=== PATIENT | female | born 1990 | race Caucasian/White ===

== ENCOUNTER 2018-04-03 02:44 | Emergency (ER) | payer MEDICAID ==
[~2018-04-03] VITALS: Ht 154.9 cm; Wt 64.7 kg
[~2018-04-03 02:44] MED LIST: AMOX500T2 PO; ARM1EACH MC; CEPH500C5 PO; CHLO1LIQ2 PO; CLIN300C85 PO; IBUP-1986 PO; IBUPROFEN PO
[2018-04-03 02:52] VITALS: BP 151/103
[2018-04-03] MEDS ORDERED: LIDOcaine 4% (40 mg/ml) topical solution 50ml TP ONE (04:20)
[2018-04-03] MEDS ORDERED: SULF1TAB49 PO (04:38)
[2018-04-03] MEDS ORDERED: CEPH500C5 PO (04:38)
[2018-04-03] MEDS ORDERED: HYDR-3965 PO (04:38)
== END 2018-04-03 05:59 | disposition home or self-care (01) ==
LOC: ER 02:44
DX: L03.011 Cellulitis of right finger (principal); I10 Essential (primary) hypertension; Z79.899 Other long term (current) drug therapy; Z88.2 Allergy status to sulfonamides
CPT/HCPCS: 87070; 87077; 87186; 99283

== ENCOUNTER 2023-04-10 23:06 | Emergency (ER) | payer MEDICAID ==
[~2023-04-10] VITALS: Ht 154.9 cm; Wt 65.9 kg
[~2023-04-10 23:06] MED LIST changes: -CEPH500C5 PO; +CLIN-97 PO; -CLIN300C85 PO
[2023-04-10 23:15] VITALS: BP 150/100; PULSE 98; RESP 16; TEMP 98.3; O2SAT 100
[2023-04-11] MEDS ORDERED: AMOX-117 PO (00:06)
== END 2023-04-11 00:16 | disposition home or self-care (01) ==
LOC: ER 23:06
DX: K12.0 Recurrent oral aphthae (principal); I10 Essential (primary) hypertension; Z79.899 Other long term (current) drug therapy
CPT/HCPCS: 99283

== ENCOUNTER 2024-03-29 20:31 | Emergency (ER) | payer MEDICAID ==
[~2024-03-29] VITALS: Ht 154.9 cm; Wt 72.9 kg
[2024-03-29 21:25] LABS: BASOPHILS # (AUTO) 0.1 X10'3 (0-0.2); BASOPHILS % (AUTO) 0.7 % (0-1); EOSINOPHILS # (AUTO) 0.5 X10'3 (0-0.9); EOSINOPHILS % (AUTO) 5.7 % (0-6); HEMATOCRIT 39.5 % (35.0-45.0); HEMOGLOBIN 13.3 g/dl (12.0-16.0); LYMPHOCYTES # (AUTO) 2.6 X10'3 (1.1-4.8); LYMPHOCYTES % (AUTO) 29.2 % (21-51); MEAN CORPUSCULAR HEMOGLOBIN 29.8 PG (27.0-31.0); MEAN CORPUSCULAR HGB CONC 33.6 g/dL (33.0-36.5); MEAN CORPUSCULAR VOLUME 88.6 FL (78-98); MEAN PLATELET VOLUME 7.9 FL (7.4-10.4); MONOCYTES # (AUTO) 0.8 X10'3 (0-0.9); MONOCYTES % (AUTO) 8.6 % (2-12); NEUTROPHILS # (AUTO) 4.9 X10'3 (1.8-7.7); NEUTROPHILS % (AUTO) 55.8 % (42-75); PLATELET COUNT 267 X10'3 (140-440); RED BLOOD COUNT 4.46 X10'6 (4.20-5.60); RED CELL DISTRIBUTION WIDTH 13.9 % (11.5-14.5); WHITE BLOOD COUNT 8.8 X10'3 (4.5-11.0)
[2024-03-29 21:41] LABS: ALANINE AMINOTRANSFERASE 23 U/L (12-78); ALBUMIN 3.8 G/DL (3.4-5.0); ALBUMIN/GLOBULIN RATIO 1.3 (1.1-1.5); ALKALINE PHOSPHATASE 77 IU/L (46-116); ANION GAP 6 (8-16); ASPARTATE AMINO TRANSFERASE 11 U/L (10-37); BILIRUBIN,TOTAL 0.3 MG/DL (0.1-1.0); BLOOD UREA NITROGEN 17 MG/DL (7-18); BUN/CREATININE RATIO 26.6 (10.0-20.0); CHLORIDE 104 MMOL/L (99-107); CREATININE 0.64 MG/DL (0.40-0.90); GLUCOSE 87 MG/DL (70-104); POTASSIUM 3.8 MMOL/L (3.5-5.1); SODIUM 139 MMOL/L (135-145); TOTAL CARBON DIOXIDE 29.3 MMOL/L (24-32); TOTAL PROTEIN 6.8 G/DL (6.4-8.2); eCRCL 93 ML/MIN; eGFR > 90 ML/MIN
[2024-03-29 21:48] LABS: PRO BRAIN NATRIURETIC PEPTIDE < 30 PG/ML (0-125)
[2024-03-29 22:10] LABS: D-DIMER 0.24 MG/L FEU (0-0.50)
[2024-03-30 00:20] VITALS: BP 155/100; PULSE 89; RESP 16; O2SAT 98
[2024-03-30 00:22] VITALS: TEMP 98
== END 2024-03-30 00:32 | disposition home or self-care (01) ==
LOC: ER 20:32
DX: R60.0 Localized edema (principal); I10 Essential (primary) hypertension
CPT/HCPCS: 36415; 71045; 80053; 83880; 84484; 85025; 85379; 93005; 99285

== ENCOUNTER 2024-06-10 17:24 | Emergency (ER) | payer MEDICAID ==
[~2024-06-10] VITALS: Ht 154.9 cm; Wt 74.0 kg
[2024-06-10 17:25] VITALS: TEMP 98.4
[2024-06-10 17:56] LABS: BASOPHILS # (AUTO) 0.1 X10'3 (0-0.2); BASOPHILS % (AUTO) 0.7 % (0-1); EOSINOPHILS # (AUTO) 0.4 X10'3 (0-0.9); EOSINOPHILS % (AUTO) 4.6 % (0-6); HEMATOCRIT 40.5 % (35.0-45.0); HEMOGLOBIN 13.1 g/dl (12.0-16.0); LYMPHOCYTES # (AUTO) 2.4 X10'3 (1.1-4.8); LYMPHOCYTES % (AUTO) 26.8 % (21-51); MEAN CORPUSCULAR HEMOGLOBIN 28.5 PG (27.0-31.0); MEAN CORPUSCULAR HGB CONC 32.3 g/dL (33.0-36.5); MEAN PLATELET VOLUME 7.9 FL (7.4-10.4); MONOCYTES # (AUTO) 0.8 X10'3 (0-0.9); MONOCYTES % (AUTO) 9.4 % (2-12); NEUTROPHILS # (AUTO) 5.2 X10'3 (1.8-7.7); NEUTROPHILS % (AUTO) 58.5 % (42-75); PLATELET COUNT 271 X10'3 (140-440); RED CELL DISTRIBUTION WIDTH 13.8 % (11.5-14.5); WHITE BLOOD COUNT 8.8 X10'3 (4.5-11.0)
[2024-06-10 18:11] LABS: ALANINE AMINOTRANSFERASE 20 U/L (12-78); ALBUMIN 3.6 G/DL (3.4-5.0); ALBUMIN/GLOBULIN RATIO 1.1 (1.1-1.5); ALKALINE PHOSPHATASE 83 IU/L (46-116); ANION GAP 9 (8-16); ASPARTATE AMINO TRANSFERASE 16 U/L (10-37); BILIRUBIN,TOTAL 0.3 MG/DL (0.1-1.0); BLOOD UREA NITROGEN 10 MG/DL (7-18); BUN/CREATININE RATIO 18.9 (10.0-20.0); CALCIUM 9.1 MG/DL (8.5-10.1); CHLORIDE 105 MMOL/L (99-107); CREATININE 0.53 MG/DL (0.40-0.90); GLUCOSE 106 MG/DL (70-104); POTASSIUM 3.6 MMOL/L (3.5-5.1); SODIUM 140 MMOL/L (135-145); TOTAL CARBON DIOXIDE 26.4 MMOL/L (24-32); TOTAL PROTEIN 6.9 G/DL (6.4-8.2); eCRCL 112 ML/MIN; eGFR > 90 ML/MIN
[2024-06-10 18:18] LABS: PRO BRAIN NATRIURETIC PEPTIDE < 30 PG/ML (0-125)
[2024-06-10 19:19] VITALS: BP 144/92; PULSE 94; RESP 16; O2SAT 99
[2024-06-10 19:54] LABS: D-DIMER < 0.19 MG/L FEU (0-0.50)
[2024-06-10 20:04] LABS: CREATINE KINASE 82 U/L (26-192); THYROID STIMULATING HORMONE 1.66 ulU/ml (0.34-4.50)
== END 2024-06-10 20:30 | disposition home or self-care (01) ==
LOC: ER 17:24
DX: R07.9 Chest pain, unspecified (principal); R53.81 Other malaise; I10 Essential (primary) hypertension
CPT/HCPCS: 36415; 71045; 80053; 82550; 83880; 84443; 84484; 85025; 85379; 93005; 99285

== ENCOUNTER 2024-07-28 11:18 | Emergency (ER) | payer MEDICAID ==
[~2024-07-28] VITALS: Ht 154.9 cm; Wt 72.8 kg
[2024-07-28 12:03] LABS: BASOPHILS # (AUTO) 0.1 X10'3 (0-0.2); BASOPHILS % (AUTO) 0.8 % (0-1); EOSINOPHILS # (AUTO) 0.3 X10'3 (0-0.9); EOSINOPHILS % (AUTO) 5.2 % (0-6); HEMATOCRIT 38.4 % (35.0-45.0); LYMPHOCYTES # (AUTO) 2.5 X10'3 (1.1-4.8); LYMPHOCYTES % (AUTO) 38.7 % (21-51); MEAN CORPUSCULAR HEMOGLOBIN 29.4 PG (27.0-31.0); MEAN CORPUSCULAR HGB CONC 33.8 g/dL (33.0-36.5); MEAN CORPUSCULAR VOLUME 86.9 FL (78-98); MEAN PLATELET VOLUME 7.8 FL (7.4-10.4); MONOCYTES # (AUTO) 0.7 X10'3 (0-0.9); MONOCYTES % (AUTO) 10.7 % (2-12); NEUTROPHILS # (AUTO) 2.9 X10'3 (1.8-7.7); NEUTROPHILS % (AUTO) 44.6 % (42-75); PLATELET COUNT 277 X10'3 (140-440); RED BLOOD COUNT 4.42 X10'6 (4.20-5.60); RED CELL DISTRIBUTION WIDTH 13.4 % (11.5-14.5); WHITE BLOOD COUNT 6.4 X10'3 (4.5-11.0)
[2024-07-28 12:09] LABS: BILIRUBIN,URINE NEGATIVE (Neg); CLARITY,URINE CLOUDY (Clear); COLOR,URINE YELLOW (Yellow); GLUCOSE, URINE NEGATIVE (Neg); KETONES,URINE NEGATIVE (Neg); LEUKOCYTE ESTERASE ,URINE NEGATIVE (Neg); NITRITES, URINE NEGATIVE (Neg); OCCULT BLOOD,URINE NEGATIVE (Neg); PROTEIN,URINE NEGATIVE (Neg); URINE HCG NEGATIVE (NEG); UROBILINOGEN,URINE 0.2 E.U/dL (0.2-1.0)
[2024-07-28 12:12] LABS: UA COLLECTION TYPE CLN CATCH MIDSTREAM
[2024-07-28 12:19] LABS: AMORPHOUS PHOSPHATES 3+; BACTERIA,URINE FEW /HPF (Neg); MUCUS STRANDS NONE SEEN /LPF (Neg); RBC,URINE NONE SEEN /HPF (0-2); SQUAMOUS EPITHELIAL CELL,UR FEW /LPF (FEW); WBC,URINE 0-4 /HPF (0-4)
[2024-07-28 12:19] LABS: ALANINE AMINOTRANSFERASE 27 U/L (12-78); ALBUMIN 3.8 G/DL (3.4-5.0); ALBUMIN/GLOBULIN RATIO 1.4 (1.1-1.5); ALKALINE PHOSPHATASE 96 IU/L (46-116); ANION GAP 8 (8-16); ASPARTATE AMINO TRANSFERASE 19 U/L (10-37); BILIRUBIN,TOTAL 0.4 MG/DL (0.1-1.0); BLOOD UREA NITROGEN 16 MG/DL (7-18); BUN/CREATININE RATIO 21.3 (10.0-20.0); CALCIUM 9.4 MG/DL (8.5-10.1); CHLORIDE 105 MMOL/L (99-107); CREATININE 0.75 MG/DL (0.40-0.90); GLUCOSE 86 MG/DL (70-104); LIPASE 45 U/L (16-77); POTASSIUM 4.1 MMOL/L (3.5-5.1); SODIUM 144 MMOL/L (135-145); TOTAL CARBON DIOXIDE 30.8 MMOL/L (24-32); TOTAL PROTEIN 6.6 G/DL (6.4-8.2); eCRCL 78 ML/MIN; eGFR 87 ML/MIN
--- NOTE | 2024-07-28 13:19 | ELECTROCARDIOGRAPH REPORT ---
[facility] Test Date: 2024-07-28 Test Time: 13:17:29 Pat Name: DANICA LEONARD Department: [facility]- Patient ID: [facility]-[id number] Room: Gender: F [employer]: : 1990 Requested By: VINOD JONES Order Number: [id number] Reading MD: Measurements Intervals [place] Rate: 85 P: 73 [place]: 150 QRS: 77 QRSD: 107 T: 64 QT: 350 QTc: 417 Interpretive Statements Sinus rhythm Please click the below link to view image of tracing.
--- NOTE | 2024-07-28 13:48 | RADIOLOGY REPORT ---
DI CHEST,TWO VIEWS, HISTORY: chest pressure/pain COMPARISON: None None TECHNICAL DATA: 2 view of the chest was obtained. FINDINGS: Lines and tubes: None Cardiomediastinal silhouette: normal Pulmonary vasculature: normal Lung expansion: normal Lung airspace: normal Lung interstitium: normal Pleura: normal Pneumothorax: no Bones: Unremarkable Other: no IMPRESSION: No acute intrathoracic abnormality.
--- NOTE | 2024-07-28 14:30 | Physician Documentation ---
History of Present Illness ~ Chief Complaint: See Chief Complaint Stated Complaint: KIDNEY PAIN Time Seen by MD: 13:00 Primary Medical Doctor: [facility] HPI Patient is seen today with multiple complaints including chest pressure and chest pain off and on over the last few weeks. Patient denies any previous cardiac history. Patient denies any family history of heart attack. Patient states she also has significant complaints of urinary issues including urinary urgency and frequency and pressure in the bladder area with urination. And also having to strain to pee. Patient denies any hematuria. Patient denies any kalyn rtness of breath or abdominal pain or nausea, vomiting, diarrhea. Patient denies any fevers or chills. She has no other concern or complaint at this time. Medication Reconciliation Allergies: Coded Allergies: No Known Allergies (Unverified , 07/28/24) Scheduled Amoxicillin (Amoxicillin), 1 TABLET PO TID Chlorhexidine (Chlorhexidine Flavor), 15 ML PO BID Clindamycin HCL* (Clindamycin HCL*), 1 CAP PO Q6H Ibuprofen (Ibuprofen), 1 TABLET PO TID Scheduled PRN [Ibuprofen], 600 MG PO Q6H PRN for pain Durable Medical Equipment Arm Brace (Wrist Brace), 1 EACH [facility] DAILY, (DME) Past Medical History Past Medical History: Hypertension, *MUSCULOSKELETAL* Past Surgical History: no surgical history Alcohol Use: None Drug Use: none Lives with: S/O Lives In: Home Occupation: employed Review of Systems Constitutional: Denies: chills, fever, weakness Eyes: Denies: pain, blurred vision ENT: Denies: ear pain, nose pain, throat pain, mouth pain Respiratory: Denies: cough, shortness of breath Cardiovascular: Denies: chest pain, palpitations Gastrointestinal: Denies: abdominal pain, nausea, vomiting Genitourinary: Denies: burning, dysuria Female Genitalia: Denies: vaginal discharge, pelvic pain Neurological: Denies: headache, dizziness Musculoskeletal: Denies: pain, swelling Integumentary: Denies: rash, lesions Allergic/Immunologic: Denies: hives, itching Hematologic/Lymphatic: Denies: no symptoms reported Psychiatric: Denies: depression, anxiety Physical Exam Vital Signs: Temperature: 97.6, Heart Rate: 108, Respiratory Rate: 16, BP: 148/90, Pulse Oximetry: 98, Weight: 72.750 Physical Exam General: Awake and Alert, no acute distress. HEENT: Conjunctiva pink, Sclera clear, Mucus Membranes moist. Neck: Supple without masses and tenderness. Resp: Unlabored. Lungs clear to auscultation bilaterally. Heart: Regular Rate and rhythm, normal S1 and S2 without murmur, rub or gallop. Abdomen: Soft and non tender no organomegaly : Patient declined exam today Extremities: No cyanosis,clubbing or edema. Skin: Warm and Dry. Progress Results/Orders Results/Orders Orders - VINOD JONES PAC Chest,Two Views (07/28/24 12:59) Hs Troponin I W Calculations (07/28/24 16:28) Hs Troponin I W Calculations (07/28/24 17:28) Completed Orders - VINOD JONES PAC Hcg, Ur Ql (07/28/24 11:38) Cbc/Diff (07/28/24 11:38) BMP (07/28/24 11:38) Lipase (07/28/24 11:38) CMP (07/28/24 11:38) Ua W/Microscopic, Cult If Ind (07/28/24 11:37) Electrocardiogram (07/28/24 12:59) Chest,Two Views (07/28/24 12:59) Hs Troponin I W Calculations (07/28/24 14:28) Vital Signs 07/28/24 11:32 Temp 97.6 Pulse 108 Resp 16 B/P (MAP) 148/90 Pulse Ox 98 Laboratory Tests Test 07/28/24 11:37 07/28/24 11:51 Urine Specimen Description Cln catch midstream Urine Color Yellow Urine Clarity Cloudy Urine pH 8.0 Urine Specific [place] 1.015 Urine Protein Negative Urine Glucose (UA) Negative Urine Ketones Negative Urine Occult Blood Negative Urine Nitrite Negative Urine Bilirubin Negative Urine Urobilinogen 0.2 Urine Leukocyte Esterase Negative Urine RBC None seen Urine WBC 0-4 Urine Squamous Epithelial Cells Few Urine Amorphous Phosphates 3+ Urine Bacteria Few Urine Mucus None seen Urine Culture Indicated Not ind Volume Urine Centrifuged 10 ml Urine HCG, Qualitative Negative Urine Comment White Blood Count 6.4 Red Blood Count 4.42 Hemoglobin 13.0 Hematocrit 38.4 Mean Corpuscular Volume 86.9 Mean Corpuscular Hemoglobin 29.4 Mean Corpuscular Hemoglobin Concent 33.8 Red Cell Distribution Width 13.4 Platelet Count 277 Mean Platelet Volume 7.8 Neutrophils (%) (Auto) 44.6 Lymphocytes (%) (Auto) 38.7 Monocytes (%) (Auto) 10.7 Eosinophils (%) (Auto) 5.2 Basophils (%) (Auto) 0.8 Neutrophils # (Auto) 2.9 Lymphocytes # (Auto) 2.5 Monocytes # (Auto) 0.7 Eosinophils # (Auto) 0.3 Basophils # (Auto) 0.1 CBC Comment Sodium Level 144 Potassium Level 4.1 Chloride Level 105 Carbon Dioxide Level 30.8 Anion Gap 8 Blood Urea Nitrogen 16 Creatinine 0.75 Estimated GFR/1.73 m2 87 BUN/Creatinine Ratio 21.3 H Glucose Level 86 Calcium Level 9.4 Total Bilirubin 0.4 Aspartate Amino Transf (AST/SGOT) 19 Alanine Aminotransferase (ALT/SGPT) 27 Alkaline Phosphatase 96 Troponin I High Sensitivity 5 Total Protein 6.6 Albumin 3.8 Globulin 2.8 Albumin/Globulin Ratio 1.4 Lipase 45 Chemistry Comments EKG/XRAY/CT/US/VASC/MRI EKG : Additional Comment EKG interpreted by myself today shows normal sinus rhythm, regular rate at 85 beats per minute, no sign of ischemia or ST segment elevation, no sign of axis deviation. Chest X-Ray : Additional Comments Chest x-ray interpreted by myself today shows no large effusion, no large infiltrate, normal mediastinum. DIAGNOSTIC RADIOLOGY Patient: DANICA LEONARD Medical Record: [id number] [facility] : 1990, Age: 34 Sex: Female Location: ER Patient Status: REG ER Service Date/Time: 07/28/241258 Ordering Physician: VINOD JONES PAC Exam: CHEST,TWO VIEWS DI CHEST,TWO VIEWS, HISTORY: chest pressure/pain COMPARISON: None None TECHNICAL DATA: 2 view of the chest was obtained. FINDINGS: Lines and tubes: None Cardiomediastinal silhouette: normal Pulmonary vasculature: normal Lung expansion: normal Lung airspace: normal Lung interstitium: normal Pleura: normal Pneumothorax: no Bones: Unremarkable Other: no IMPRESSION: No acute intrathoracic abnormality. Electronically Signed by:FRAN LEVY MD Date & Time: 07/28/241344 Dictated by: FRAN LEVY MD Dictation date and time: 07/28/241344 Primary Care Provider: NO PRIMARY CARE PROVIDER cc: VINOD JONES PAC ~ Heart Score: Heart Score Response (Comments) Value History Slightly Suspicious 0 EKG Normal 0 Age <45 0 Risk Factors No known risk factors 0 Troponin Normal limit 0 Total 0 Medical Decision Making Findings Patient is seen today with multiple complaints including chest pressure and chest pain off and on over the last few weeks. Patient denies any previous cardiac history. Patient denies any family history of heart attack. Patient states she also has significant complaints of urinary issues including urinary urgency and frequency and pressure in the bladder area with urination. And also having to strain to pee. Patient denies any hematuria. Patient denies any shortness of breath or abdominal pain or nausea, vomiting, diarrhea. Patient denies any fevers or chills. She has no other concern or complaint at this time. Patient labs were completely unremarkable, no sign of UTI, no hematuria, troponin level extremely low and negative, CMP and CBC completely unremarkable. Chest x-ray and EKG unremarkable. Patient and I did utilize shared decision- making today. Patient will follow up with [facility] as soon as possible for further eval and treatment and likely he has speculum exam for urinary symptoms. Patient will return to ED with any worsening, concerning or changing symptoms. Departure Disposition: HOME / SELF CARE / HOMELESS Impression: Primary Impression: Urinary urgency Additional Impression: Nonspecific chest pain Condition: Stable Discharge Instructions: Nonspecific Chest Pain, Adult, [id number] Additional Instructions: Patient labs were completely unremarkable, no sign of UTI, no hematuria, troponin level extremely low and negative, CMP and CBC completely unremarkable. Chest x-ray and EKG unremarkable. Patient and I did utilize shared decision- making today. Patient will follow up with [facility] as soon as possible for further eval and treatment and likely he has speculum exam for urinary symptoms. Patient will return to ED with any worsening, concerning or changing symptoms. Referrals: NO PRIMARY CARE PROVIDER (PCP) Signature Scribe Signature: No scribe Attestation: No scribe VINOD JONES PAC July 28, 2024 14:30
[2024-07-28 15:28] VITALS: BP 138/86; PULSE 98; RESP 16; TEMP 97.6; O2SAT 98
== END 2024-07-28 15:30 | disposition home or self-care (01) ==
LOC: ER 11:18
DX: R07.89 Other chest pain (principal); R39.15 Urgency of urination; I10 Essential (primary) hypertension; Z79.899 Other long term (current) drug therapy
CPT/HCPCS: 36415; 71046; 80053; 81001; 81025; 83690; 84484; 85025; 93005; 99285

== ENCOUNTER 2024-11-09 20:37 | Emergency (ER) | payer MEDICAID ==
[~2024-11-09] VITALS: Ht 154.9 cm; Wt 63.6 kg
[~2024-11-09 20:37] MED LIST changes: +CLIN-224 PO; -CLIN-97 PO
[2024-11-09 20:40] VITALS: BP 146/91; PULSE 98; RESP 16; O2SAT 98
--- NOTE | 2024-11-09 21:59 | Physician Documentation ---
History of Present Illness ~ Chief Complaint: Ankle pain Stated Complaint: ANKLE PAIN Time Seen by MD: 21:02 Primary Medical Doctor: [facility] HPI Patient is seen today with complaints of pain of her right ankle just started a couple of days ago. She denies any injury to the right ankle and has no other concern or complaint at this time. She states she has tenderness to the lateral right ankle. Tetanus witin 5 years: Yes Medication Reconciliation Allergies: Coded Allergies: No Known Allergies (Unverified , 11/09/24) Scheduled Amoxicillin (Amoxicillin), 1 TABLET PO TID Chlorhexidine (Chlorhexidine Flavor), 15 ML PO BID Clindamycin HCL* (Clindamycin HCL*), 1 CAP PO Q6H Ibuprofen (Ibuprofen), 1 TABLET PO TID Scheduled PRN [Ibuprofen], 600 MG PO Q6H PRN for pain Durable Medical Equipment Arm Brace (Wrist Brace), 1 EACH [facility] DAILY, (DME) Past Medical History Past Medical History: Hypertension, *MUSCULOSKELETAL* Past Surgical History: no surgical history Alcohol Use: None Drug Use: none Lives with: S/O Lives In: Home Occupation: employed Review of Systems Constitutional: Denies: chills, fever, weakness Eyes: Denies: pain, blurred vision ENT: Denies: ear pain, nose pain, throat pain, mouth pain Respiratory: Denies: cough, shortness of breath Cardiovascular: Denies: chest pain, palpitations Gastrointestinal: Denies: abdominal pain, nausea, vomiting Genitourinary: Denies: burning, dysuria Female Genitalia: Denies: vaginal discharge, pelvic pain Neurological: Denies: headache, dizziness Musculoskeletal: Denies: pain, swelling Integumentary: Denies: rash, lesions Allergic/Immunologic: Denies: hives, itching Hematologic/Lymphatic: Denies: no symptoms reported Psychiatric: Denies: depression, anxiety Physical Exam Vital Signs: Temperature: 97.9, Source: Temporal, Heart Rate: 98, Respiratory Rate: 16, BP: 146/91, Pulse Oximetry: 98, Weight: 63.640 Oxygen Flow Rate: 0 Physical Exam General: Awake and Alert, no acute distress. HEENT: Conjunctiva pink, Sclera clear, Mucus Membranes moist. Neck: Supple without masses and tenderness. Resp: Unlabored. Lungs clear to auscultation bilaterally. Heart: Regular Rate and rhythm, normal S1 and S2 without murmur, rub or gallop. Musculoskeletal: Patient on exam does have very mild swelling noted of the just anterior to the right lateral malleoli with significant tenderness to palpation in his area. I do not appreciate any significant ecchymosis in his area. Patient has no edema or pitting edema. Patient is neurovascularly intact distally. Motor function intact distally. Strength intact Extremities: No cyanosis,clubbing or edema. Skin: Warm and Dry. Progress Results/Orders Results/Orders Orders - JONESLILLYVINOD R PAC Ankle, Complete(3vw Min) (11/09/24 21:40) Completed Orders - JONES,VINOD Christine PAC Ankle, Complete(3vw Min) (11/09/24 21:40) Vital Signs 11/09/24 20:40 Temp 97.9 Pulse 98 Resp 16 B/P (MAP) 146/91 Pulse Ox 98 O2 Flow Rate 0 EKG/XRAY/CT/US/VASC/MRI Bone/Soft Tissue X-Ray (Ext.) : Additional Comment X-ray of right ankle interpreted by myself today shows no sign of acute fracture, bones in anatomic alignment, no osteolytic or blastic lesions. Medical Decision Making Findings Patient is seen today with complaints of pain of her right ankle just started a couple of days ago. She denies any injury to the right ankle and has no other concern or complaint at this time. She states she has tenderness to the lateral right ankle. Patient did have x-ray taken of right ankle showed no acute abnormality. Patient will follow up with primary care in 5-10 days if no better as needed sooner. Patient will continue Tylenol and ibuprofen as needed for symptomatic relief. Patient will return to ED with any worsening, concerning or changing symptoms. Departure Disposition: HOME / SELF CARE / HOMELESS Impression: Primary Impression: Sprain of ankle Qualified Codes: S93.401A - Sprain of unspecified ligament of right ankle, initial encounter Condition: Improved Discharge Instructions: Ankle Pain Additional Instructions: Patient did have x-ray taken of right ankle showed no acute abnormality. Patient will follow up with primary care in 5-10 days if no better as needed sooner. Patient will continue Tylenol and ibuprofen as needed for symptomatic relief. Patient will return to ED with any worsening, concerning or changing symptoms. Referrals: NO PRIMARY CARE PROVIDER (PCP) Signature Scribe Signature: No scribe Attestation: No norahibe VINOD JONES PAC Nov 09, 2024 21:59
[2024-11-09 22:02] VITALS: TEMP 97.9
--- NOTE | 2024-11-09 22:05 | RADIOLOGY REPORT ---
CLINICAL INDICATION: right ankle pain TECHNIQUE: 3 radiographic views of the right ankle were obtained. Comparison: None FINDINGS/IMPRESSION: There is no evidence of acute fracture or dislocation. Mild maria elena deformity of the calcaneus. The visualized joint space is well maintained. The alignment is anatomical. There is no radiopaque foreign body.
== END 2024-11-09 22:08 | disposition home or self-care (01) ==
LOC: ER 20:38
DX: S93.401A Sprain of unspecified ligament of right ankle, initial encounter (principal); I10 Essential (primary) hypertension; X58.XXXA Exposure to other specified factors, initial encounter; Y93.89 Activity, other specified; Y92.89 Other specified places as the place of occurrence of the external cause; Y99.8 Other external cause status
CPT/HCPCS: 73610; 99283

== ENCOUNTER 2024-12-18 10:14 | Emergency (ER) | payer MEDICAID ==
[~2024-12-18] VITALS: Ht 154.9 cm; Wt 58.3 kg
[2024-12-18 10:41] VITALS: BP 124/80; PULSE 80; RESP 16; TEMP 97.8; O2SAT 99
[2024-12-18 11:08] LABS: MEAN PLATELET VOLUME 8.2 FL (7.4-10.4); RED CELL DISTRIBUTION WIDTH 13.1 % (11.5-14.5)
[2024-12-18 11:16] LABS: LEUKOCYTE ESTERASE ,URINE NEGATIVE (Neg); NITRITES, URINE NEGATIVE (Neg); OCCULT BLOOD,URINE MODERATE (Neg)
[2024-12-18 11:17] LABS: URINE HCG NEGATIVE (NEG)
[2024-12-18 11:24] LABS: UA COLLECTION TYPE CLN CATCH MIDSTREAM
[2024-12-18 11:28] LABS: CREATININE 0.67 MG/DL (0.40-0.90); TOTAL CARBON DIOXIDE 31.5 MMOL/L (24-32); eCRCL 88 ML/MIN; eGFR > 90 ML/MIN
[2024-12-18 11:30] LABS: MUCUS STRANDS MODERATE /LPF (Neg); SQUAMOUS EPITHELIAL CELL,UR MANY /LPF (FEW)
--- NOTE | 2024-12-18 13:26 | RADIOLOGY REPORT ---
Exam: CT CT ABDOMEN PELVIS History: left flank pain, Hx renal stones and stent Comparison Study: None TECHNIQUE: Multidetector CT of the abdomen AND PELVIS without IV contrast. Axial, coronal and sagittal multiplanar reformats were obtained from the axial data set by the technologist. Radiation Dose Information: CT Dose: CTDI volume is 9.9 mGy. Dose-length product is 516.54 mGy*cm FINDINGS: Bibasilar atelectasis. Partially visualized heart is unremarkable. Liver, spleen, gallbladder, and adrenal glands are unremarkable. Limited evaluation of the pancreas given noncontrast imaging with no gross abnormalities noted. No [place] nephrosis or renal calculi bilaterally. The ureters are poorly visualized. 2 mm calculus medial to the left psoas muscle within the pelvis . Uncertain if this is within the ureter. No prior imaging for comparison. Urinary bladder is unremarkable. A tampon is noted in place. Poor visualization of the uterus and adnexa. Limited evaluation of the gastrointestinal tract given noncontrast imaging. The stomach is unremarkable. Proximal and mid small bowel loops are not adequately assessed with no significant distention. The distal small bowel loops are fluid- filled and nondistended. Appendix is not completely visualized with a visualized appendix unremarkable. Without complete visualization of the appendix, can not exclude acute appendicitis. Large amount of fecal material within the colon. No evidence of intraperitoneal free air or free fluid. Phleboliths are noted within the pelvis. No evidence of aortic aneurysm. No significant lymphadenopathy. Minimal bowel wall edema. No evidence of acute osseous abnormalities. IMPRESSION: Limited noncontrast imaging as detailed above. No [place] nephrosis or renal calculi bilaterally. The ureters are poorly visualized. 2 mm calculus medial to the left psoas muscle within the pelvis . Uncertain if this is within the ureter with no associated ureteral dilatation. The urinary bladder is unremarkable. Constipation.
== END 2024-12-18 17:14 | disposition left against medical advice (07) ==
LOC: ER 10:14
DX: R10.9 Unspecified abdominal pain (principal); R11.0 Nausea; Z53.21 Procedure and treatment not carried out due to patient leaving prior to being seen by health care provider
CPT/HCPCS: 36415; 74176; 80053; 81001; 81025; 83690; 85025; 99281

== ENCOUNTER 2024-12-20 08:26 | Emergency (ER) | payer MEDICAID ==
[~2024-12-20] VITALS: Ht 154.9 cm; Wt 58.2 kg
--- NOTE | 2024-12-20 09:53 | Physician Documentation ---
History of Present Illness ~ Chief Complaint: Abdominal Pain Stated Complaint: FLANK PAIN Time Seen by MD: 09:24 OK to notify your PCP?: Yes Primary Medical Doctor: [facility] SELENA TRIPLETT Mode of Arrival: POV HPI 34-year-old female patient who was in the hospital December [address] results of abdomen and pelvis CT. She wants to know what is basal atelectasis and whether it is showing collapsed lungs. Otherwise she is fine. I do look at the labs and vital signs and CTA and they are all not showing any acute pathology. Lab results are normal. CT was reviewed. I also showed the patient the CT of the abdomen and pelvis and we agree that there is no collapsed lungs. Medication Reconciliation Allergies: Coded Allergies: No Known Allergies (Unverified , 12/18/24) Scheduled Amoxicillin (Amoxicillin), 1 TABLET PO TID Chlorhexidine (Chlorhexidine Flavor), 15 ML PO BID Clindamycin HCL* (Clindamycin HCL*), 1 CAP PO Q6H Ibuprofen (Ibuprofen), 1 TABLET PO TID Scheduled PRN [Ibuprofen], 600 MG PO Q6H PRN for pain Durable Medical Equipment Arm Brace (Wrist Brace), 1 EACH [facility] DAILY, (DME) Past Medical History Past Medical History: Hypertension, *MUSCULOSKELETAL* Past Surgical History: no surgical history Alcohol Use: None Drug Use: none Lives with: S/O Lives In: Home Occupation: employed Review of Systems ROS As stated above in the HPI, otherwise all systems are reviewed and negative. Physical Exam Vital Signs: Temperature: 97.9, Heart Rate: 81, Respiratory Rate: 17, BP: 137/80, Pulse Oximetry: 98, Weight: 58.180 Oxygen Flow Rate: 0 Physical Exam Reviewed vital signs and they are well within normal range. Const: Not in any distress Head: Atraumatic Eyes: Normal Conjunctiva ENT: Normal External Ears, Nose and Mouth. Moist mucous membranes Neck: Full range of motion. No meningismus Resp: Clear to auscultation bilaterally. Normal work of breathing Cardio: Regular rate and rhythm, no murmurs. Skin well perfused, heart rate 84/minute Abd: Soft, non-tender, non-distended. Normal bowel sounds. No rebound or guarding Skin: No petechiae or rashes. Warm and dry Back: No midline or flank tenderness Ext: No cyanosis, or edema Neuro: Awake and alert Psych: Normal Mood and Affect Progress Results/Orders Results/Orders Vital Signs 12/20/24 12/20/24 12/20/24 12/20/24 08:30 09:26 09:26 10:20 Temp 97.9 98.0 Pulse 96 81 81 Resp 15 17 17 16 B/P (MAP) 127/84 137/80 (99) 137/80 Pulse Ox 98 98 98 O2 Flow Rate 0 0 Medical Decision Making Findings ER Course/Med. Decision Making REVIEW of RECORD(S): Previous medical records here and/or external medical records, such as that provided directly by the patient, by EMS and/or outside medical facilities, if available, were reviewed. COMORBIDITIES history of CHF with low ejection fraction MDM During the physical examination, the findings suggestive of acute life- threatening condition such as JVD, tracheal deviation, acidotic breathing, noisy stridorous breath sounds, pulses paradoxus, muffled heart sounds, unequal breath sounds, abdominal rigidity and rebound tenderness, focal neurological deficits, cool clammy skin, severe hypotension, severe tachycardia or bradyc ardia are absent. Patient presenting for CTA report . Vital signs reviewed. Patient is hemodynamically stable and does not meet SIRS criteria. Patient appears nontoxic on exam. Physical examination unremarkable. I reviewed the CT of the abdomen pelvis together with the patient and the patient is satisfied that there is no collapsed lungs of significance. TREATMENT/DISPOSITION: The patient's presentation is most consistent with normal CT scan of the abdomen pelvis. Prior to discharge I independently reviewed the patients past medical history, clinical risk factors, comorbidities, and social determinants of health and diagnostic studies. The patient appears to be a safe discharge home with close outpatient PCP follow-up I had extensive discussion with patient regarding management, disposition and follow up. Potential symptom etiology was discussed, and shared decision making occurred. They will return immediately if symptoms worsen, do not improve, or they have any further concerns. Prior to discharge all questions were addressed. The patient is aware that the purpose of this visit was to screen for an acute medical emergency requiring emergent stabilization. Chronic and occult conditions, including malignancies, have not been ruled out. If patient is unable to arrange follow-up as stated in the discharge instructions and further discussed with the patient directly, or their symptoms worsen/become more concerning, they are to return to the ER for reassessment immediately. Prior to leaving the department, the patient has a plan for discharge, has decision making capacity, and acknowledges an understanding of the verbal and written discharge instructions. SOCIAL DETERMINANTS: Patient demonstrates no obvious challenges to following up as an outpatient although did consider whether patient had any barriers to access care including homelessness, Food insecurity, Mental health, Substance abuse, Disabilities, Limited access to medical care, Difficulty finding transport, Insurance issues, Refusal of care or testing due to cost concerns. MEDICAL SCREENING: I have discussed with the patient the non-definitive nature of the emergency screening exam, diagnosis and the possibility of a variety of conditions which may present in atypically benign fashion and stressed the importance of close follow-up for definitive diagnosis and treatment. We discussed signs and symptoms that should be watched for which might indicate a more serious or new condition that would benefit from emergency reevaluation and the patient has verbalized understanding to this and my other detailed discharge instructions and promises compliance. I have referred him back to his primary physician of course for a more detailed evaluation and more definitive diagnoses. DISCLAIMER: Inadvertent spelling and grammatical errors are likely due to EMR/dictation software use and do not reflect on the overall quality of patient care. Note that the electronic time recorded on this note does not necessarily reflect the actual time of the patient encounter. Departure Disposition: 01 HOME / SELF CARE / HOMELESS Impression: Primary Impression: Normal result on radiology study Condition: Stable Additional Instructions: Thank you for coming to our Emergency Department today. Please ask your nurse or provider if you have questions about your care today and do not leave until all your questions have been answered. Please use any medications given as directed and follow-up with your doctor (or the doctor you were referred to) in the next 1-3 days. Your primary care doctor can help to coordinate outpatient specialty care and provide authorization for specialty referral as needed. If you do not have a primary care doctor you may follow up at a [facility]. You may also use motrin and tylenol as needed for fever and/or pain unless instructed otherwise by your provider or nurse. Indications for more urgent follow-up have been discussed, but you may return to the Emergency Department at ANY time for any worrisome or worsening symptoms. [facility] Facilities: [facility] Facilities: [facility]: [facility] [place] Address:[address] [place] [id number] [facility]: [place] Address:[address] [place] [address] [facility]: Telemedicine Address:[address] [place] [address] [facility] Address:[address] [place] [address] Registration Billing Pharmacy Referrals [facility] Address:[address] [place] [address] Referrals: NO PRIMARY CARE PROVIDER (PCP) Signature Scribe Signature: x Attestation: HAYLIE Kelly MD Dec 20, 2024 09:53
[2024-12-20 10:20] VITALS: BP 137/80; PULSE 81; RESP 16; TEMP 98; O2SAT 98
== END 2024-12-20 10:29 | disposition home or self-care (01) ==
LOC: ER 08:27
DX: J98.19 Other pulmonary collapse (principal); I10 Essential (primary) hypertension
CPT/HCPCS: 99282

== ENCOUNTER 2025-01-04 22:59 | Emergency (ER) | payer MEDICAID ==
[~2025-01-04] VITALS: Ht 154.9 cm; Wt 60.0 kg
[2025-01-04 23:06] VITALS: BP 152/85; PULSE 100; RESP 16; TEMP 98.3; O2SAT 99
== END 2025-01-05 01:25 | disposition left against medical advice (07) ==
LOC: ER 22:59
DX: K59.00 Constipation, unspecified (principal)
CPT/HCPCS: 99281

== ENCOUNTER 2025-01-10 11:33 | Emergency (ER) | payer MEDICAID ==
[~2025-01-10] VITALS: Ht 154.9 cm; Wt 59.4 kg
[2025-01-10] MEDS: sodium polystyrene sulfonate ENEMA 30gm/120ml RC ONE (12:00)
[2025-01-10 12:33] LABS: MEAN PLATELET VOLUME 8.3 FL (7.4-10.4); RED CELL DISTRIBUTION WIDTH 14.2 % (11.5-14.5)
[2025-01-10 12:40] LABS: LEUKOCYTE ESTERASE ,URINE NEGATIVE (Neg); NITRITES, URINE NEGATIVE (Neg); OCCULT BLOOD,URINE NEGATIVE (Neg)
[2025-01-10 12:41] LABS: UA COLLECTION TYPE CLN CATCH MIDSTREAM
[2025-01-10 12:50] LABS: URINE HCG NEGATIVE (NEG)
[2025-01-10 12:50] LABS: CREATININE 0.65 MG/DL (0.40-0.90); TOTAL CARBON DIOXIDE 30.7 MMOL/L (24-32); eCRCL 90 ML/MIN; eGFR > 90 ML/MIN
--- NOTE | 2025-01-10 12:53 | RADIOLOGY REPORT ---
Date: 01/10/2025 12:22 PM Examination: DI ABDOMEN,SINGLE VIEW(KUB) History: constipation Comparison: None TECHNIQUE: Frontal views of the abdomen was obtained. FINDINGS: Bowel gas pattern is unremarkable. The lung bases are unremarkable. No acute osseous abnormality identified. IMPRESSION: Nonobstructive bowel gas pattern. Large stool burden.
[2025-01-10] MEDS: magnesium citrate 296ml oral solution PO ONE (14:08)
--- NOTE | 2025-01-10 14:08 | Physician Documentation ---
History of Present Illness Chief Complaint: Abdominal Pain Stated Complaint: ABD PAIN Time Seen by MD: 11:57 Primary Medical Doctor: [facility] Mode of Arrival: POV, Ambulatory HPI 34 year old female reports one week of constipation and abdominal pain for which she has taken almost every over the counter remedy that she could find other than an enema. She denies fever, N/V/D. Medication Reconciliation Allergies: Coded Allergies: No Known Allergies (Unverified , 01/10/25) Scheduled Amoxicillin (Amoxicillin), 1 TABLET PO TID Chlorhexidine (Chlorhexidine Flavor), 15 ML PO BID Clindamycin HCL* (Clindamycin HCL*), 1 CAP PO Q6H Ibuprofen (Ibuprofen), 1 TABLET PO TID Scheduled PRN [Ibuprofen], 600 MG PO Q6H PRN for pain Durable Medical Equipment Arm Brace (Wrist Brace), 1 EACH [facility] DAILY, (DME) Past Medical History Past Medical History: Hypertension, *MUSCULOSKELETAL* Past Surgical History: no surgical history Alcohol Use: None Drug Use: none Lives with: S/O Lives In: Home Occupation: employed Review of Systems All Other Systems at this time: Reviewed and Negative Physical Exam Vital Signs: RN Vital Signs have been reviewed: Yes, Temperature: 97.4, Source: Temporal, Heart Rate: 100, Respiratory Rate: 18, BP: 138/89, Pulse Oximetry: 99, Weight: 59.400 Oxygen Flow Rate: 0 Physical Exam HEENT: PERRL, moist oral mucosa, EOMI Pulmonary: No respiratory distress Cardiac: RRR, no murmur, rub or gallop GI: nondistended, soft, diffusely tender, no guarding, no rebound MSK: no deformity Skin: w/d/i, no rash Neuro: alert, nonfocal Psych: normal affect Progress Results/Orders Results/Orders Orders - JO HEART MD Abdomen,Single View(Kub) (01/10/25 ) Completed Orders - JO HEART MD Urinalysis, Cult If Indicated (01/10/25 11:39) Hcg, Ur Ql (01/10/25 11:39) Cbc/Diff (01/10/25 11:39) BMP (01/10/25 11:39) Lipase (01/10/25 11:39) CMP (01/10/25 11:39) Abdomen,Single View(Kub) (01/10/25 ) Magnesium Citrate Oral Lissett. (Magnesium C (01/10/25 12:00) Sod Polystyrene Sulfon Enema (Sodium Josué (01/10/25 12:00) Vital Signs 01/10/25 01/10/25 11:36 12:01 Temp 97.4 Pulse 100 Resp 18 18 B/P (MAP) 138/89 Pulse Ox 99 O2 Flow Rate 0 Laboratory Tests Test 01/10/25 11:40 01/10/25 11:51 Urine Specimen Description Cln catch midstream Urine Color Yellow Urine Clarity Clear Urine pH 6.0 Urine Specific [place] <=1.005 Urine Protein Negative Urine Glucose (UA) Negative Urine Ketones Negative Urine Occult Blood Negative Urine Nitrite Negative Urine Bilirubin Negative Urine Urobilinogen 0.2 Urine Leukocyte Esterase Negative Urine Culture Indicated Not ind Volume Urine Centrifuged 10 ml Urine HCG, Qualitative Negative Urine Comment White Blood Count 6.8 Red Blood Count 4.19 L Hemoglobin 12.2 Hematocrit 36.9 Mean Corpuscular Volume 88.2 Mean Corpuscular Hemoglobin 29.2 Mean Corpuscular Hemoglobin Concent 33.1 Red Cell Distribution Width 14.2 Platelet Count 283 Mean Platelet Volume 8.3 Neutrophils (%) (Auto) 57.5 Lymphocytes (%) (Auto) 29.6 Monocytes (%) (Auto) 9.9 Eosinophils (%) (Auto) 2.2 Basophils (%) (Auto) 0.8 Neutrophils # (Auto) 3.9 Lymphocytes # (Auto) 2.0 Monocytes # (Auto) 0.7 Eosinophils # (Auto) 0.1 Basophils # (Auto) 0.1 CBC Comment Sodium Level 140 Potassium Level 3.4 L Chloride Level 105 Carbon Dioxide Level 30.7 Anion Gap 4 L Blood Urea Nitrogen 13 Creatinine 0.65 Estimated GFR/1.73 m2 > 90 BUN/Creatinine Ratio 20.0 Glucose Level 78 Calcium Level 9.1 Total Bilirubin 0.8 Aspartate Amino Transf (AST/SGOT) 17 Alanine Aminotransferase (ALT/SGPT) 22 Alkaline Phosphatase 54 Total Protein 6.7 Albumin 3.7 Globulin 3.0 Albumin/Globulin Ratio 1.2 Lipase 26 Chemistry Comments Medical Decision Making Additional information obtaine: N/A Findings 34 year old female with apparent constipation. Labs unremarkable, xray interpreted by me demonstrated significant stool burden, no free air, no evidence of bowel obstruction. Offered magnesium citrate and enema, patient refused enema but will take magnesium citrate home. Discharged with return precautions. Differential Dx:Considerations: Other Additional Comments Ddx = constipation, bowel obstruction, stool impaction, diverticulitis, UTI Departure Disposition: 01 HOME / SELF CARE / HOMELESS Impression: Primary Impression: Constipation Condition: Stable Discharge Instructions: Constipation, Adult Referrals: NO PRIMARY CARE PROVIDER (PCP) Education Educated: Patient Educated regarding: diagnosis, treatment, prognosis, need for follow up Signature Scribe Signature: . Attestation: . JO HEART MD Jan 10, 2025 14:08
[2025-01-10 14:40] VITALS: BP 136/78; PULSE 66; RESP 16; TEMP 97.4; O2SAT 99
== END 2025-01-10 14:47 | disposition home or self-care (01) ==
LOC: ER 11:34
DX: K59.00 Constipation, unspecified (principal); I10 Essential (primary) hypertension; Z79.899 Other long term (current) drug therapy
CPT/HCPCS: 36415; 74018; 80053; 81003; 81025; 83690; 85025; 99284

== ENCOUNTER 2025-03-11 19:09 | Emergency (ER) | payer MEDICAID ==
[~2025-03-11] VITALS: Ht 154.9 cm; Wt 59.2 kg
--- NOTE | 2025-03-11 19:36 | ELECTROCARDIOGRAPH REPORT ---
[facility] Test Date: 2025-03-11 Test Time: 19:33:56 Pat Name: DANICA LEONARD Department: EMERGENCY ROOM Room: Gender: F Pizza Cook: DB : 1990 Requested By: CARLO SAMANIEGO Order Number: [id number] Reading MD: Dr. Warren Cheung Measurements Intervals [place] Rate: 92 P: 71 TX: 152 QRS: 71 QRSD: 107 T: 70 QT: 341 QTc: 422 Interpretive Statements Sinus rhythm Probable inferior infarct, old Baseline wander in lead(s) III,aVF Electronically Signed On 03-13-2025 21:14:[address] Warren Cheung Please click the below link to view image of tracing.
[2025-03-11 20:11] LABS: MEAN PLATELET VOLUME 7.9 FL (7.4-10.4); RED CELL DISTRIBUTION WIDTH 12.8 % (11.5-14.5)
[2025-03-11 20:25] LABS: CREATININE 0.62 MG/DL (0.40-0.90); PRO BRAIN NATRIURETIC PEPTIDE < 30 PG/ML (0-125); TOTAL CARBON DIOXIDE 30.1 MMOL/L (24-32); eCRCL 95 ML/MIN; eGFR > 90 ML/MIN
--- NOTE | 2025-03-11 20:35 | Physician Documentation ---
History of Present Illness ~ Chief Complaint: Multiple Medical Complaints Stated Complaint: HEAD PRESSURE Time Seen by MD: 21:24 OK to notify your PCP?: Yes Primary Medical Doctor: SUSHIL TRIPLETT Source: patient Mode of Arrival: POV Exam Limitations: no limitations HPI This is a 34-year-old female with a history of CHF who presents with several weeks of worsening chest pressure and shortness of breath. She describes a "congestion and chest heaviness" that is "overwhelming" and makes her feel like she "can't breathe". She has additionally been experienced nausea and fatigue that is progressively worsening. She has been seen by her mobile security architect Dr. Amaral twice who told her she was"fine". He prescribed nitroglycerin after her second visit but she states that she "doesn't want to take a bunch of pills..." she "wants to know whats wrong". She also notes some slight intermittent tingling to her hands/feet/mouth since the time her symptoms began. Medication Reconciliation Allergies: Coded Allergies: No Known Allergies (Unverified , 01/10/25) Scheduled Amoxicillin (Amoxicillin), 1 TABLET PO TID Chlorhexidine (Chlorhexidine Flavor), 15 ML PO BID Clindamycin HCL* (Clindamycin HCL*), 1 CAP PO Q6H Ibuprofen (Ibuprofen), 1 TABLET PO TID Scheduled PRN [Ibuprofen], 600 MG PO Q6H PRN for pain Durable Medical Equipment Arm Brace (Wrist Brace), 1 EACH MC DAILY, (DME) Past Medical History Past Medical History: Hypertension, *MUSCULOSKELETAL* Past Surgical History: no surgical history Alcohol Use: None Drug Use: none Lives with: S/O Lives In: Home Occupation: employed Review of Systems All Other Systems at this time: Reviewed and Negative ROS As stated above in the HPI, otherwise all systems are reviewed and negative. Physical Exam Vital Signs: Temperature: 98.3, Heart Rate: 109, Respiratory Rate: 16, BP: 142/83, Pulse Oximetry: 100, Weight: 59.200 Oxygen Flow Rate: 0 Physical Exam General: Patient is awake, alert, oriented x4 in no acute distress and well appearing.~ Head: Normocephalic and atraumatic. Eyes: Conjunctival normal. EOMI. PERRL. ENT: Mucous membranes moist. Neck: Supple, trachea is midline. Chest: Clear to auscultation bilaterally without rales, rhonchi, or wheezes. There is no accessory muscle use or retractions. Cardiac: RRR without murmurs, gallops, or rubs. Abd: Soft, nondistended, nontender, with normoactive bowel sounds. No guarding, rebound, or rigidity. Extremities: Normal strength. Normal range of motion. No deformities or edema. No calf tenderness or edema. Back: No midline spinal or CVA tenderness. Skin: Warm and dry with no significant rash appreciated. Neuro: Cranial nerves II-XII grossly intact. No focal neuro deficits. Patient ambulating without difficulty. Progress Results/Orders Results/Orders Orders - KENNETH BOYD MD Chest,Single View (03/11/25 19:40) Monitor (03/11/25 19:32) Saline Lock (03/11/25 19:32) Oxygen (03/11/25 19:32) Hs Troponin I W Calculations (03/11/25 21:32) Hs Troponin I W Calculations (03/11/25 22:32) Completed Orders - KENNETH BOYD MD Chest,Single View (03/11/25 19:40) Cbc/Diff (03/11/25 19:32) BMP (03/11/25 19:32) PBNP (03/11/25 19:32) Electrocardiogram (03/11/25 19:32) Hs Troponin I W Calculations (03/11/25 19:32) Vital Signs 03/11/25 03/11/25 03/11/25 03/11/25 19:23 21:48 21:56 21:56 Temp 98.3 98.3 98.3 Pulse 109 78 Resp 16 18 B/P (MAP) 142/83 136/78 (97) Pulse Ox 100 98 O2 Flow Rate 0 0 Laboratory Tests Test 03/11/25 19:38 White Blood Count 6.4 Red Blood Count 4.09 L Hemoglobin 12.0 Hematocrit 35.8 Mean Corpuscular Volume 87.6 Mean Corpuscular Hemoglobin 29.2 Mean Corpuscular Hemoglobin Concent 33.4 Red Cell Distribution Width 12.8 Platelet Count 275 Mean Platelet Volume 7.9 Neutrophils (%) (Auto) 56.3 Lymphocytes (%) (Auto) 31.3 Monocytes (%) (Auto) 9.2 Eosinophils (%) (Auto) 2.4 Basophils (%) (Auto) 0.8 Neutrophils # (Auto) 3.6 Lymphocytes # (Auto) 2.0 Monocytes # (Auto) 0.6 Eosinophils # (Auto) 0.2 Basophils # (Auto) 0.0 CBC Comment Sodium Level 142 Potassium Level 4.1 Chloride Level 108 H Carbon Dioxide Level 30.1 Anion Gap 4 L Blood Urea Nitrogen 15 Creatinine 0.62 Estimated GFR/1.73 m2 > 90 BUN/Creatinine Ratio 24.2 H Glucose Level 111 H Calcium Level 9.3 Troponin I High Sensitivity 4 Pro-B-Type Natriuretic Peptide < 30 Albumin 3.7 Chemistry Comments EKG/XRAY/CT/US/VASC/MRI Chest X-Ray : Interpreted By: self Views: 1 VIEW Additional Comments 0058: 1 view chest x-ray interpreted by myself negative for effusions, infiltrates. Normal cardiac silhouette. Medical Decision Making Additional information obtaine: N/A Findings Patient presents to the emergency room with chest pain that has per HPI. Differentials include but are not limited to ACS, pulmonary embolism, aortic pathology, musculoskeletal pain, reflux therefore emergent labs ordered which we re reassuring. Given time of onset I would expect troponins be positive at this juncture if this did represent cardiac ischemia. Patient's pain that has pleuritic in nature. Her heart score is reassuring. No calf tenderness to palpation and no hypoxia and I do not feel patient requires investigation to possible pulmonary embolism. Patient was globus sensation which that has im proved. Along with tingling of around mouth and limbs I do believe that has an element of anxiety. The need to follow up with a doctor discussed. Heart Score: 1 Differential Dx:Considerations: Include: angina, aortic dissection, chest wall pain, cholelithiasis, CHF, costochondritis, esophageal reflux/spasm, gastritis, herpes zoster, myocardial infarction, pericarditis, pleuritis, pancreatitis, pneumonia, pneumothorax, pulmonary embolus, other Departure Time of Disposition: 21:34 Disposition: 01 HOME / SELF CARE / HOMELESS Impression: Primary Impression: Nonspecific chest pain Condition: Stable Discharge Instructions: Nonspecific Chest Pain, Adult, [id number] Additional Instructions: Follow up with your PCP for further evaluation and care. Please return to the ED if you develop any new or worsening symptoms. Referrals: NO PRIMARY CARE PROVIDER (PCP) Education Educated: Patient Educated regarding: diagnosis, treatment, need for follow up Signature Scribe Signature: Scribed for Kenneth Boyd MD by Makayla Lama . 03/11/25 22:36 Attestation: The note accurately reflects work and decisions made by me.Kenneth Boyd MD 03/12/25 05:19 CHENG FLORES Mar 11, 2025 20:35 MAKAYLA VILLAVICENCIO Mar 11, 2025 21:35 KENNETH BOYD MD Mar 12, 2025 05:19
[2025-03-11 21:56] VITALS: BP 136/78; PULSE 78; RESP 18; TEMP 98.3; O2SAT 98
--- NOTE | 2025-03-12 08:45 | RADIOLOGY REPORT ---
CHEST RADIOGRAPH INDICATION: CP TECHNIQUE: Single frontal view of the chest was obtained COMPARISON: DI CHEST,TWO VIEWS on DOS: 07/28/24, DI CHEST,SINGLE VIEW on DOS: 06/10/24, DI CHEST,SINGLE VIEW on DOS: 03/29/24 FINDINGS: Lines and Tubes: None Lungs: Clear Pleura: No effusion. No pneumothorax. Cardiomediastinal contours: Unremarkable Bones: Unremarkable IMPRESSION: No acute disease.
== END 2025-03-11 21:57 | disposition home or self-care (01) ==
LOC: ER 19:10
DX: R07.9 Chest pain, unspecified (principal); I11.0 Hypertensive heart disease with heart failure; I50.9 Heart failure, unspecified; Z79.899 Other long term (current) drug therapy
CPT/HCPCS: 36415; 71045; 80048; 83880; 84484; 85025; 93005; 99285